=== PATIENT | female | born 1955 | race Hispanic/Latino ===

== ENCOUNTER 2018-05-01 07:17 | Day surgery (SDC) | payer MEDICARE ==
[2018-05-01] MEDS ORDERED: Lactated Ringer's 500 ML IV ONE (07:46)
[2018-05-01 07:54] VITALS: BMI 39.0
[2018-05-01] MEDS ORDERED: Propofol 10 mg/ml Inj (20 ML) ONE (08:52)
[2018-05-01] MEDS ORDERED: Midazolam 2 MG/2 ML VIAL ONE (08:52)
[2018-05-01 09:31] VITALS: TEMP 98
[2018-05-01 09:58] VITALS: BP 111/72; PULSE 69; RESP 23; O2SAT 100
== END 2018-05-01 13:40 | disposition home or self-care (01) ==
LOC: H.ENDO 07:17
PROVIDERS: ATTEND Internal Medicine Gastroenterology
DX: Z12.11 Encounter for screening for malignant neoplasm of colon (principal); K21.9 Gastro-esophageal reflux disease without esophagitis; E66.01 Morbid (severe) obesity due to excess calories; K64.8 Other hemorrhoids; K29.50 Unspecified chronic gastritis without bleeding
CPT/HCPCS: 43239; 45378; 88305; J2001; J2250; J2704; J7120